=== PATIENT | female | born 1990 | race Caucasian/White ===

== ENCOUNTER 2019-02-26 13:10 | Emergency (ER) | payer OTHER ==
[2019-02-26 13:15] VITALS: BP 106/56
--- NOTE | 2019-02-26 14:13 | EDPHY ---
General Time Seen by Provider: 02/26/19 14:13 Narrative: CLINICAL IMPRESSION: Blood borne pathogen exposure ASSESSMENT/PLAN: Patient is a 28-year-old female with a significant history of hypothyroidism who presents to the emergency department after a blood borne exposure with a confirmed hepatitis-C positive patient. Patient reports possible exposure to her left eye when taking out an IV. This eye was immediately irrigated. Patient is in no acute distress. Blood borne exposure protocol initiated- HIV 1 and 2, HBsAb and HCVAB ordered and are still pending. Patient is a traveling nurse through a separate agency, she has already notified them of this occurrence. Baseline laboratory studies were obtained today, she will need repeat blood work in 30 days and at 5 months. Confirmed protocol with our charge nurse Vaishali. Patient wishes for this to be done through her agency however she is aware that she can proceed through our [facility]. No other injury or concerns. Conservative return precautions were discussed. ED COURSE: 1425: Case discussed with Dr. Loyola CHIEF COMPLAINT: Blood borne exposure HPI: Patient is a 28-year-old female with a history of hypothyroidism who presents to the emergency department after a blood borne exposure. Patient is a traveling nurse with an outside company, currently working in the PACU. She reports she was taking out a patient's IV when it slipped causing blood to splash on her forehead and possibly into her left eye. She is unsure if it actually went into her eye however she immediately irrigated. Laboratory studies were obtained on the source, HIV negative however hepatitis C positive. Patient denies any other concerns or complaints. PAST MEDICAL HISTORY: Hypothyroid Family History: Not contributory Social History: Denies cigarette smoking or illicit drug use ROS: A full 10 point review of systems was negative except for those mentioned in HPI. PHYSICAL EXAM: General Appearance: Alert, oriented, appropriate, cooperative, NAD, well hydrated, non-toxic appearing, VSS, no hypoxia. HENT: TMs are clear bilaterally. Oropharynx clear is no erythema or exudates, no tonsillar hypertrophy or asymmetry. Dentition without abnormality. Eyes: PERRLA, no acute vision change, nystagmus, swelling, discharge, pain or photosensitivity. Conjunctiva pink, no pallor or injection. Respiratory: There are no retractions, lungs are clear to auscultation. Cardiac: Regular rate and rhythm, no murmurs or gallops. Gastrointestinal: Abdomen is soft, nontender. Skin: Warm, dry, no rashes, no nodules on palpation. MEDICAL DECISION MAKING: Patient was seen independently. Secondary supervising physician at time of evaluation was Dr. Loyola, case discussed with him however he did not evaluate this patient. Diagnosis: Blood born pathogen exposure. New, requires workup Summary: See Assessment and Plan for summary of ED visit Clinical lab tests: ordered. Independent visualization of images, tracing, or specimens: No. Decision to obtain medical records or history from someone other than the patient: No. Review / Summarize previous medical records: Yes. Discussed patient with another provider: Yes, Dr. Loyola. Patient Progress: Stable, discharge. - History Smoking Status: Never smoked - Objective Vital Signs: Initial Vital Signs Temperature (C) 36.7 C 02/26/19 13:13 Heart Rate 55 L 02/26/19 13:13 Respiratory Rate 17 02/26/19 13:13 Blood Pressure 106/56 L 02/26/19 13:13 O2 Sat (%) 99 02/26/19 13:13 O2 Delivery Mode Room Air Allergies/Adverse Reactions: erythromycin base Allergy (Verified 02/26/19 13:12) Home Medications: Medication Instructions Recorded Synthroid 02/26/19 Laboratory Results: 02/26/19 13:40 Hep Bs Antibody NEGATIVE (NEGATIVE) Hepatitis C Antibody NEGATIVE (NEGATIVE) HIV 1&2 Antibody NEGATIVE (NEGATIVE) Departure - Departure Disposition: Home, Routine, Self-Care Clinical Impression: Exposure to blood-borne pathogen Condition: Good Instructions: Body Substance Exposure (ED) Additional Instructions: DISCHARGE INSTRUCTIONS FROM YOUR DOCTOR Thank you for visiting our emergency department today. Please keep in mind that discharge from the emergency department does not mean that there is nothing wrong - it simply means that we have not identified an emergency condition that requires further evaluation or treatment in the hospital. Please refer to your pathogen exposure packet. You will need your blood redrawn in 30 days as well as at 5 months. Please make sure notify your work comp so that they are aware. Your HIV, hep B and hep C tests are still pending at this time. People present with illnesses and injuries in different ways, and it is always possible that we have missed something. You may always return for re-evaluation if symptoms worsen or if they are not improving or if you develop new/different symptoms. Again, thank you for choosing our emergency department. We hope that you feel better. Referrals: Lashell John MD [Medical Doctor] - As per Instructions (Please establish care with a primary care provider if you do not have 1 already.)
[2019-02-26 15:28] LABS: HEPATITIS C ANTIBODY TOTAL NEGATIVE (NEGATIVE); HIV TYPE 1 AND 2 NEGATIVE (NEGATIVE)
== END 2019-02-26 14:39 | disposition home or self-care (01) ==
DX: Z77.21 Contact with and (suspected) exposure to potentially hazardous body fluids (principal)
CPT/HCPCS: G0472